=== PATIENT | male | born 1940 | race Asian ===

== ENCOUNTER 2018-05-24 14:26 | Emergency (ER) | payer MEDICARE, MEDICAID ==
[~2018-05-24] VITALS: Ht 149.9 cm; Wt 55.0 kg
--- NOTE | 2018-05-24 14:35 | NUR ---
LUNCH RN: PT BIB [facility] AFTER [facility] WITH UNKNOWN LOC. UPON ARRIVAL PT ORIENTED TO SELF, TIME AND PLACE BUT UNABLE TO RECALL THE SITUATION OR ANY PMH/ALLERGIES WHEN ASKED. PT STATES NO PAIN. CONNECTED TO ALL MONITORING, VSS. EKG DONE. PA TO BEDSIDE FOR ASSESSMENT. AWAITING ORDERS. BLANKET PROVIDED FOR COMFORT. CALL LIGHT WITHIN REACH.
[2018-05-24 15:18] LABS: ALANINE AMINOTRANSFERASE 20 U/L (12-78); ALBUMIN 3.6 g/dL (3.4-5.0); ANION GAP 6 mmol/L (5-15); CALCIUM 8.5 mg/dL (8.5-10.1); CHLORIDE 109 mmol/L (98-107); CREATININE 1.59 mg/dL (0.7-1.3)
[2018-05-24 15:21] LABS: ALKALINE PHOSPHATASE 136 U/L (45-117); BILIRUBIN,TOTAL 0.4 mg/dL (0.2-1.0); TOTAL PROTEIN 7.6 g/dL (6.4-8.2)
--- NOTE | 2018-05-24 15:26 | NUR ---
Pt transported on [place] to [place] at this time.
--- NOTE | 2018-05-24 15:37 | NUR ---
Pt back to room from CT and connected to all monitors. Pt's at bedside. All safety measures in place. No needs expressed. GOMEZ.
[2018-05-24 15:46] LABS: BASOPHILS % (AUTO) 0 % (0-1); EOSINOPHILS # (AUTO) 0.15 x10^3/uL (0-0.4); EOSINOPHILS % (AUTO) 1 % (1-7); LYMPHOCYTES # (AUTO) 1.66 x10^3/uL (1-3.4); LYMPHOCYTES % (AUTO) 15 % (22-44); MD SCAN; MEAN CORPUSCULAR HEMOGLOBIN 30.1 pg (27.5-34.5); MEAN CORPUSCULAR HGB CONC 32.4 g/dL (33.2-36.2); MEAN PLATELET VOLUME 7.5 fL (7.4-10.4); MONOCYTES # (AUTO) 0.46 x10^3/uL (0.2-0.8); MONOCYTES % (AUTO) 4 % (2-9); NEUTROPHILS # (AUTO) 8.61 x10^3/uL (1.8-6.8); NEUTROPHILS % (AUTO) 79 % (42-75); PLATELET COUNT 229 x10^3/uL (130-400); RED BLOOD COUNT 4.49 x10^6/uL (4.38-5.82); RED CELL DISTRIBUTION WIDTH 16.8 % (9.4-14.8)
[2018-05-24 17:14] VITALS: BP 143/70
--- NOTE | 2018-05-24 17:16 | NUR ---
Patient and spouse given discharge instructions and they have confirmed that they understand the instructions. Patient ambulatory with steady gait. Pt left with discharge paperwork and all personal belongings.
== END 2018-05-24 17:23 | disposition home or self-care (01) ==
LOC: ED 15:35
DX: S00.03XA Contusion of scalp, initial encounter (principal); N28.9 Disorder of kidney and ureter, unspecified; R51 Headache; W01.0XXA Fall on same level from slipping, tripping and stumbling without subsequent striking against object, initial encounter; Y93.89 Activity, other specified; Y92.89 Other specified places as the place of occurrence of the external cause; Y99.8 Other external cause status
CPT/HCPCS: 36415; 70450; 71045; 80053; 80307; 85025; 93005; 99284

== ENCOUNTER 2018-10-15 21:16 | Emergency (ER) | payer MEDICARE, MEDICAID ==
[~2018-10-15] VITALS: Ht 165.1 cm; Wt 55.0 kg
[2018-10-15 21:50] LABS: BASOPHILS # (AUTO) 0.05 x10^3/uL (0-0.1); BASOPHILS % (AUTO) 1 % (0-1); EOSINOPHILS # (AUTO) 0.18 x10^3/uL (0-0.4); EOSINOPHILS % (AUTO) 2 % (1-7); LYMPHOCYTES % (AUTO) 17 % (22-44); MD NO; MEAN CORPUSCULAR HEMOGLOBIN 31.3 pg (27.5-34.5); MEAN CORPUSCULAR HGB CONC 32.4 g/dL (33.2-36.2); MEAN CORPUSCULAR VOLUME 96.6 fL (81-97); MEAN PLATELET VOLUME 7.1 fL (7.4-10.4); MONOCYTES # (AUTO) 0.42 x10^3/uL (0.2-0.8); MONOCYTES % (AUTO) 5 % (2-9); NEUTROPHILS # (AUTO) 6.29 x10^3/uL (1.8-6.8); NEUTROPHILS % (AUTO) 75 % (42-75); PLATELET COUNT 340 x10^3/uL (130-400); RED BLOOD COUNT 3.94 x10^6/uL (4.38-5.82)
[2018-10-15 22:00] LABS: INTERNATIONAL NORMALIZED RATIO 0.97 (0.93-1.1); PROTHROMBIN TIME 10.2 Seconds (9.6-11.5)
[2018-10-15 22:02] LABS: ANION GAP 6 mmol/L (5-15); CALCIUM 8.7 mg/dL (8.5-10.1); CHLORIDE 109 mmol/L (98-107)
[2018-10-15] MEDS ORDERED: L.E.T SOLUTION TP ONE (22:30)
[2018-10-15] MEDS ORDERED: DIPH,PERTUSS(ACELL),TET VAC/PF NC IM-VACC ONE (22:30)
--- NOTE | 2018-10-15 22:40 | NUR ---
PT WAS PLACED IN A GOWN AND WARM BLANKETS APPLIED.
[2018-10-15] MEDS ORDERED: DIPH,PERTUSS(ACELL),TET VAC/PF 0.5 ML IM-VACC ONE (23:30)
--- NOTE | 2018-10-16 00:40 | NUR ---
UP AND AMB TO THE BR W/ X 1 ASST. VOID. BACK TO BED. WARM BLANKETS APPLIED.
--- NOTE | 2018-10-16 00:41 | NUR ---
NO NON VERBAL S/S OF PAIN OR DISCOMFORT. ATTEMPTED TO WASH MORE BLOOD OFF THE PT, TO THE PT TOLERANCE.
--- NOTE | 2018-10-16 02:35 | NUR ---
SLEEPING. WARM BLANKETS APPLIED. CALL LIGHT IN REACH.
--- NOTE | 2018-10-16 02:50 | NUR ---
CALLED [phone] THE NUMBER FOR THE PT CONTACT AND WAS TOLD THIS WAS A WRONG NUMBER.
--- NOTE | 2018-10-16 03:54 | NUR ---
RESTING. UNABLE TO FIND ANY OTHER CONTACT INFORMATION FOR THE PT.
--- NOTE | 2018-10-16 04:08 | NUR ---
MULTIPLE ATTEMPST AT CONTACTING THE PT FAMILY HAVE BEEN UNSUCCESSFUL.
--- NOTE | 2018-10-16 04:46 | NUR ---
[facility] AND A NEW CONTACT NUMBER WAS OBTAINED FOR THE PT [phone], NO ANS, MESSAGE LEFT. NON-EMERGENT PD NUMBER WAS CALLED FOR A WELL CHECK FOR THE PT WE ARE CONTINUOUSLY UNABLE TO CONTACT FAMILY
--- NOTE | 2018-10-16 05:05 | NUR ---
UP TO THE BR. AMB W/ X 1 ASST GAIT IS STEADY BUT WEAK AND SLOW. THE PT NEEDS THE ASST FOR SUPPORT. VOID AND BACK TO BED. SIPPING ON WARM TEA.
--- NOTE | 2018-10-16 06:21 | NUR ---
AWAKE. APPROPRIATE. WATCHING TV.
--- NOTE | 2018-10-16 07:32 | NUR ---
RECBS REPORT AT 700 PT NOW UPPTO BR GAIT UNSTEADY REQUESTED A SITTER
--- NOTE | 2018-10-16 08:57 | NUR ---
RECEIVED REPORT FROM GOMEZ RILEY. PT MOVED TO ROOM 38. RESTING ON [facility]. GOMEZ. SITTER AT BEDSIDE.
--- NOTE | 2018-10-16 09:14 | NUR ---
SPOKE W/ BLAKE FROM [employer] WHO STATES PT HAS A RETAIL BUSINESS DEVELOPMENT MANAGER NAMED CHATO DALTON. PHONE NUMBER IS [phone]. NO ANSWER. MESSAGE LEFT.
[2018-10-16 09:18] VITALS: BP 114/72
--- NOTE | 2018-10-16 09:18 | NUR ---
PT PROVIDED W/ BREAKFAST TRAY.
--- NOTE | 2018-10-16 09:22 | NUR ---
LEFT A MESSAGE FOR [facility].
--- NOTE | 2018-10-16 10:06 | NUR ---
ATTEMPTED TO CALL CHATO DALTON AGAIN W/O SUCCESS. CALLED [employer]'S [employer] FURNACE OPERATOR [employer] AT [phone]. NO ANSWER. MESSAGE LEFT.
--- NOTE | 2018-10-16 10:24 | NUR ---
CHRYSTAL PARKINSON FROM [employer] AT BEDSIDE TO HVAC DESIGNER PT. VERIFIED PT EMPLOYMENT W/ [employer] FROM [employer] [facility] AT [phone]. PER [employer] JARRELL IS PT'S 'S CAREGIVER AND THEY ARE WORKING ALONGSIDE PT MEDICAL CODING TECHNICIAN TO GET PT COVERED FOR CHRYSTAL TO BECOME PT'S CAREGIVER WELL. PER ERP DR. FRAN MOISE TO SEND PT HOME.
[2018-11-21] MEDS ORDERED: RISP0.5T24 PO (15:23)
[2018-11-21] MEDS ORDERED: MULT1TAB81 PO (15:23)
[2018-11-21] MEDS ORDERED: THIA100T67 PO (15:23)
[2018-11-21] MEDS ORDERED: CARV6.2512 PO (15:23)
== END 2018-10-16 10:35 | disposition home or self-care (01) ==
LOC: ED 23:07
DX: S01.311A Laceration without foreign body of right ear, initial encounter (principal); S09.90XA Unspecified injury of head, initial encounter; R41.0 Disorientation, unspecified; F17.200 Nicotine dependence, unspecified, uncomplicated; W19.XXXA Unspecified fall, initial encounter; Y93.89 Activity, other specified; Y92.099 Unspecified place in other non-institutional residence as the place of occurrence of the external cause; Y99.8 Other external cause status
CPT/HCPCS: 12051; 36415; 70450; 70486; 72125; 80048; 80307; 85025; 85610; 85730; 90471; 90715